=== PATIENT | male | born 1950 ===

== ENCOUNTER 2022-12-18 16:34 | Emergency (ER) | payer MEDICARE | END 2022-12-18 18:06 | disposition home or self-care (01) | LOC: DL.ED 16:34 | DX: S20.211A Contusion of right front wall of thorax, initial encounter (principal); Z88.0 Allergy status to penicillin; W01.0XXA Fall on same level from slipping, tripping and stumbling without subsequent striking against object, initial encounter | CPT/HCPCS: 71045; 99283 ==